=== PATIENT | male | born 1960 | race Caucasian/White ===

== ENCOUNTER 2018-01-20 17:37 | Emergency (ER) | payer SELFPAY ==
[2018-01-20 18:44] LABS: Basophils % (Auto) 0.6 % (0.0-1.8); Eosinophils # (Auto) 0.2 K/mm3 (0.0-0.4); Eosinophils % (Auto) 2.9 % (0.0-4.3); Hematocrit 43.3 % (35.5-45.6); Hemoglobin 14.3 gm/dl (11.8-15.2); Lymphocytes # (Auto) 1.7 K/mm3 (1.2-5.4); Lymphocytes % (Auto) 26.3 % (13.4-35.0); Mean Corpuscular HGB Conc 33 % (32-34); Mean Corpuscular Hemoglobin 29 pg (28-32); Mean Corpuscular Volume 88 fl (84-94); Monocytes # (Auto) 0.7 K/mm3 (0.0-0.8); Monocytes % (Auto) 10.8 % (0.0-7.3); Platelet Count 164 K/mm3 (140-440); Red Blood Count 4.93 M/mm3 (3.65-5.03); Red Cell Distribution Width 15.5 % (13.2-15.2)
[2018-01-20 19:09] LABS: BUN/Creatinine Ratio 6; Blood Urea Nitrogen 9 mg/dL (9-20); Calcium 8.7 mg/dL (8.4-10.2); Hemolysis Index 3
--- NOTE | 2018-01-20 20:38 | Emergency Department Report ---
HPI - General Chief Complaint: Chest Pain Time Seen by Provider: 01/20/18 19:34 - HPI HPI: 57-year-old male presents to the emergency department with his family with complaint of possible firing of his defibrillator. The patient has a history of a OR back in 2009 and apparently since that time he's been having some confusion or memory issues. He often believes he is still living in the [place]. He will wake up in the morning and get very agitated and is always "ready to go." This morning he came out of his room very agitated, even more so than usual, and started pointing to his chest and asking why "they put this machine in me" and "that it is pulling me." There is also another machine in the house for his [employer] defibrillator and it kept beeping and sending some type of transmission. With all this, they feel that the defibrillator was firing. He denies any chest pain. Patient follows with Dr. Willis at [facility]. They called the office and were told to the emergency department for evaluation. The patient does not speak much [place]oan but his daughter is here at bedside translating for us. ED Past Medical Hx - Past Medical History Hx Heart Attack/AMI: Yes (2009) Hx Congestive Heart Failure: No Hx Diabetes: No Hx Asthma: No Hx COPD: No Additional medical history: [place] - Surgical History Additional Surgical History: [place] - Social History Smoking Status: Never Smoker Substance Use Type: Alcohol - Medications Home Medications: Home Medications Medication Instructions Recorded Confirmed Last Taken Type Amiodarone [Cordarone 200 MG TAB] 200 mg PO BID #60 tablet 04/28/16 Unknown Rx Aspirin [Aspirin TAB] 325 mg PO QDAY #30 tablet 04/28/16 Unknown Rx Metoprolol [Lopressor TAB] 25 mg PO BID #60 tablet 04/28/16 Unknown Rx ED Review of Systems ROS: Stated complaint: CP Other details as noted in HPI Comment: All other systems reviewed and negative Constitutional: denies: chills, fever Eyes: denies: eye pain, eye discharge, vision change ENT: denies: ear pain, throat pain Respiratory: denies: cough, shortness of breath, wheezing Cardiovascular: denies: chest pain, palpitations Gastrointestinal: denies: abdominal pain, nausea, diarrhea Genitourinary: denies: urgency, dysuria Musculoskeletal: denies: back pain, joint swelling, arthralgia Skin: denies: rash, lesions Neurological: denies: headache, weakness, paresthesias Physical Exam - Physical Exam Vital Signs: Vital Signs 01/20/18 01/20/18 17:45 20:14 Temperature 98.3 F 97.7 F Pulse Rate 72 60 Respiratory 17 12 Rate Blood Pressure 120/61 Blood Pressure 111/67 [Left] O2 Sat by Pulse 95 97 Oximetry ED Course Vital Signs 01/20/18 01/20/18 17:45 20:14 Temperature 98.3 F 97.7 F Pulse Rate 72 60 Respiratory 17 12 Rate Blood Pressure 120/61 Blood Pressure 111/67 [Left] O2 Sat by Pulse 95 97 Oximetry ED Medical Decision Making - Lab Data Result diagrams: 01/20/18 18:28 01/20/18 18:28 - EKG Data -: EKG Interpreted by Me - EKG Data When compared to previous EKG there are: no significant change Interpretation: unchanged when compared t (04/23/16), other (atrial paced rhythm , right bundle branch block, nonspecific ST-T waves) Critical care attestation.: If time is entered above; I have spent that time in minutes in the direct care of this critically ill patient, excluding procedure time. ED Disposition Clinical Impression: Defibrillator discharge Disposition: DC-01 TO HOME OR SELFCARE Is pt being admited?: No Condition: Stable Additional Instructions: please follow up with the cardiology group tomorrow if possible. Return to the emergency Department with any worsening of your symptoms or any acute distress. Referrals: JAZ WILLIS MD [Staff Physician] - [facility]
[2018-01-20 21:06] VITALS: BP 112/72
== END 2018-01-20 21:06 | disposition home or self-care (01) ==
LOC: ED 17:37
DX: T82.198A Other mechanical complication of other cardiac electronic device, initial encounter (principal); I25.2 Old myocardial infarction; Z79.82 Long term (current) use of aspirin
CPT/HCPCS: 36415; 80048; 84484; 85025; 93005; 93010; 99284

== ENCOUNTER 2018-09-29 09:36 | Outpatient (CLI) | payer MEDICARE ==
[2018-09-29 10:33] LABS: Basophils % (Auto) 0.5 % (0.0-1.8); Eosinophils # (Auto) 0.3 K/mm3 (0.0-0.4); Eosinophils % (Auto) 4.1 % (0.0-4.3); Hematocrit 43.9 % (35.5-45.6); Hemoglobin 14.2 gm/dl (11.8-15.2); Lymphocytes # (Auto) 2.2 K/mm3 (1.2-5.4); Mean Corpuscular HGB Conc 32 % (32-34); Mean Corpuscular Volume 85 fl (84-94); Monocytes # (Auto) 0.9 K/mm3 (0.0-0.8); Monocytes % (Auto) 12.8 % (0.0-7.3); Platelet Count 161 K/mm3 (140-440); Red Blood Count 5.18 M/mm3 (3.65-5.03); Red Cell Distribution Width 14.6 % (13.2-15.2)
[2018-09-29 10:50] LABS: Alanine Aminotransferase 35 units/L (7-56); BUN/Creatinine Ratio 13; Blood Urea Nitrogen 10 mg/dL (9-20); Calcium 8.7 mg/dL (8.4-10.2); Hemolysis Index 4; LDL Cholesterol,Direct 64 mg/dL (50-130)
[2018-09-29 11:23] LABS: Chol/HDL Ratio 2.36 %; HDL Cholesterol 47 mg/dL (40-59)
== END 2018-09-29 09:37 | disposition home or self-care (01) ==
LOC: LAB 09:36
PROVIDERS: ATTEND Internal Medicine
DX: E55.9 Vitamin D deficiency, unspecified (principal); I49.01 Ventricular fibrillation; I46.8 Cardiac arrest due to other underlying condition; G95.11 Acute infarction of spinal cord (embolic) (nonembolic); R94.6 Abnormal results of thyroid function studies; R79.89 Other specified abnormal findings of blood chemistry
CPT/HCPCS: 36415; 80053; 80061; 82306; 82607; 83036; 84153; 84443; 85025

== ENCOUNTER 2021-06-27 12:04 | Outpatient (CLI) | payer MEDICARE ==
[2021-06-27 12:43] LABS: Basophils # (Auto) 0.1 K/mm3 (0.0-0.1); Eosinophils # (Auto) 0.3 K/mm3 (0.0-0.4); Eosinophils % (Auto) 3.6 % (0.0-4.3); Hematocrit 46.8 % (35.5-45.6); Hemoglobin 15.3 gm/dl (11.8-15.2); Lymphocytes # (Auto) 2.4 K/mm3 (1.2-5.4); Lymphocytes % (Auto) 31.1 % (13.4-35.0); Mean Corpuscular HGB Conc 33 % (32-34); Mean Corpuscular Volume 86 fl (84-94); Monocytes # (Auto) 0.6 K/mm3 (0.0-0.8); Platelet Count 162 K/mm3 (140-440); Red Blood Count 5.45 M/mm3 (3.65-5.03); Red Cell Distribution Width 14.5 % (13.2-15.2)
[2021-06-27 13:08] LABS: Alanine Aminotransferase 20 units/L (7-56); Albumin 4.1 g/dL (3.9-5); BUN/Creatinine Ratio 19; Blood Urea Nitrogen 19 mg/dL (9-20); Calcium 9.2 mg/dL (8.4-10.2); Chol/HDL Ratio 3.86 %; HDL Cholesterol 53 mg/dL (40-59); Hemolysis Index 5; LDL Cholesterol,Direct 140 mg/dL (50-130)
--- NOTE | 2021-06-27 16:04 | XRay Report ---
CHEST 2 VIEWS INDICATION: COUGH. COMPARISON: none FINDINGS: Support devices: 2-lead pacemaker device appears in good position Heart: Within normal limits. Lungs/pleura: No acute air space or interstitial disease. No pleural abnormality or pneumothorax. Additional findings: None. IMPRESSION: No acute findings. Unremarkable chest films. Signer Name: Edgard Cage Jr, MD Signed: 06/27/2021 4:00 PM Workstation Name: [id number]
== END 2021-06-27 12:05 | disposition home or self-care (01) ==
LOC: XRAY 12:04
PROVIDERS: ATTEND Internal Medicine
DX: E55.9 Vitamin D deficiency, unspecified (principal); R73.03 Prediabetes; R39.11 Hesitancy of micturition; E05.40 Thyrotoxicosis factitia without thyrotoxic crisis or storm; E78.5 Hyperlipidemia, unspecified; R05.9 Cough, unspecified; Z00.00 Encounter for general adult medical examination without abnormal findings
CPT/HCPCS: 36415; 71046; 80053; 80061; 82306; 83036; 84153; 84443; 85025